=== PATIENT | male | born 1975 | race Caucasian/White ===

== ENCOUNTER 2016-09-10 15:27 | Emergency (ER) | payer MEDICAID ==
[~2016-09-10] VITALS: Ht 172.7 cm; Wt 63.1 kg
[~2016-09-10 15:27] MED LIST: INSU100C SQ-INSULIN; INSU100V8 SQ
[2016-09-10 15:43] VITALS: BP 97/61
[2016-09-10] MEDS ORDERED: KETOROLAC 30 MG/1 ML ONE (16:20)
[2016-09-10] MEDS ORDERED: KETOROLAC 30 MG/1 ML IM ONE (16:30)
== END 2016-09-10 16:46 | disposition home or self-care (01) ==
LOC: ED 16:27
DX: K02.9 Dental caries, unspecified (principal); F17.200 Nicotine dependence, unspecified, uncomplicated; E11.9 Type 2 diabetes mellitus without complications; F19.10 Other psychoactive substance abuse, uncomplicated
CPT/HCPCS: 96372; 99283; J1885

== ENCOUNTER 2016-10-25 08:30 | Emergency (ER) | payer MEDICAID ==
[~2016-10-25] VITALS: Ht 170.2 cm; Wt 62.4 kg
[2016-10-25] MEDS ORDERED: METF500T4 PO (08:58)
[2016-10-25] MEDS ORDERED: FOLI-17 PO (08:59)
[2016-10-25] MEDS ORDERED: MULT1TAB50 PO (08:59)
[2016-10-25] MEDS ORDERED: THIA50TA PO (09:00)
[2016-10-25] MEDS ORDERED: SODIUM CHLORIDE FLUSH 10ML SYR IVF ONE (09:30)
[2016-10-25] MEDS ORDERED: SODIUM CHLORIDE 0.9% 1,000ML IVBOLUS ONE (09:30)
[2016-10-25] MEDS ORDERED: ONDANSETRON 2MG/ML, 2ML IVPush ONE (09:30)
[2016-10-25] MEDS ORDERED: morphine SULFATE 10 MG/ML, 1ML IVPush ONE (09:30)
[2016-10-25] MEDS ORDERED: MORPHINE SULFATE 4 MG/ML, 1ML ONE (09:32)
[2016-10-25] MEDS ORDERED: ONDANSETRON 2MG/ML, 2ML ONE (09:32)
[2016-10-25] MEDS: SODIUM CHLORIDE 0.9% 1,000 ML IV ONE ×2 (09:37→10:28)
[2016-10-25 09:46] VITALS: BP 126/77
[2016-10-25 09:52] LABS: BLOOD UREA NITROGEN 14 mg/dL (7-18)
[2016-10-25] MEDS ORDERED: KETOROLAC 30 MG/1 ML ONE (10:18)
[2016-10-25] MEDS ORDERED: INSULIN REGULAR 100 UNITS/ML, 3ML VIAL ONE (10:19)
[2016-10-25] MEDS ORDERED: INSULIN REGULAR 100 UNITS/ML, 3ML VIAL IVPush ONE (10:30)
[2016-10-25] MEDS ORDERED: KETOROLAC 30 MG/1 ML IVPush ONE (10:30)
== END 2016-10-25 12:19 | disposition home or self-care (01) ==
LOC: ED 09:43
DX: L02.91 Cutaneous abscess, unspecified (principal); E11.65 Type 2 diabetes mellitus with hyperglycemia
CPT/HCPCS: 36415; 80048; 82010; 82040; 82962; 85025; 96361; 96374; 96375; 99285; J1885; J2270; J2405; J7030

== ENCOUNTER 2016-10-27 07:25 | Emergency (ER) | payer MEDICAID ==
[~2016-10-27] VITALS: Ht 172.7 cm; Wt 64.8 kg
[~2016-10-27 07:25] MED LIST changes: +FOLI-17 PO; +METF500T4 PO; +MULT1TAB50 PO; +THIA50TA PO
[2016-10-27 07:27] VITALS: BP 103/65
[2016-10-27] MEDS ORDERED: BENZOCAINE 20% SPRAY 0.5ML ONE (07:58)
[2016-10-27] MEDS ORDERED: LIDOCAINE 1%, 20ML ONE (07:59)
[2016-10-27] MEDS ORDERED: SODIUM CHLORIDE 0.9% 1,000ML IVBOLUS ONE (08:30)
[2016-10-27 09:34] LABS: BLOOD UREA NITROGEN 18 mg/dL (7-18)
[2016-10-27] MEDS ORDERED: ONDANSETRON 2MG/ML, 2ML IVPush ONE (10:00)
[2016-10-27] MEDS ORDERED: INSULIN REGULAR 100 UNITS/ML, 3ML VIAL IVPush ONE (10:00)
[2016-10-27] MEDS ORDERED: HYDROmorphone 1 MG/ML, 1ML IV ONE (10:00)
[2016-10-27] MEDS ORDERED: HYDROmorphone 1 MG/ML, 1ML ONE (10:09)
[2016-10-27] MEDS ORDERED: ONDANSETRON 2MG/ML, 2ML ONE (10:10)
[2016-10-27] MEDS ORDERED: INSULIN REGULAR 100 UNITS/ML, 3ML VIAL ONE (10:11)
== END 2016-10-27 11:19 | disposition home or self-care (01) ==
LOC: ED 08:11
DX: K02.9 Dental caries, unspecified (principal); E11.65 Type 2 diabetes mellitus with hyperglycemia; F17.210 Nicotine dependence, cigarettes, uncomplicated; F15.10 Other stimulant abuse, uncomplicated
CPT/HCPCS: 36415; 64400; 80048; 82040; 82962; 96361; 96374; 96375; 99284; J1170; J2405; J7030

== ENCOUNTER 2018-02-14 11:08 | Day surgery (SDC) | payer OTHER ==
[~2018-02-14] VITALS: Ht 170.2 cm; Wt 51.3 kg
[~2018-02-14 11:08] MED LIST changes: -METF500T4 PO; +METF500T5 PO
[2018-02-14] MEDS ORDERED: LACTATED RINGERS 1,000 ML IV SCH (11:35)
[2018-02-14] MEDS ORDERED: INSU100I15 SQ-INSULIN (11:40)
[2018-02-14 11:41] VITALS: BP 93/62
[2018-02-14 12:24] LABS: ALBUMIN 3.8 g/dL (3.4-5.0); ANION GAP 3 mmol/L (5-15); CALCIUM 8.9 mg/dL (8.5-10.1); CHLORIDE 107 mmol/L (98-107)
[2018-02-14 12:26] LABS: ALANINE AMINOTRANSFERASE 32 U/L (12-78); ALKALINE PHOSPHATASE 78 U/L (45-117); BILIRUBIN,TOTAL 0.4 mg/dL (0.2-1.0); CREATININE 0.67 mg/dL (0.7-1.3); TOTAL PROTEIN 7.6 g/dL (6.4-8.2)
[2018-02-14] MEDS ORDERED: PROPOFOL 10 MG/ML, 20ML ONE (13:04)
[2018-02-14] MEDS ORDERED: PROMETHAZINE 25 MG/ML, 1ML IV PRN (14:00)
[2018-02-14] MEDS ORDERED: ONDANSETRON ODT 8 MG PO PRN (14:00)
[2018-02-14] MEDS ORDERED: OXYcodone 5 MG/5 ML ORAL.SOL UDC PO PRN (14:00)
[2018-02-14] MEDS ORDERED: HYDROcodone/APAP 7.5-325MG/15ML UDC PO PRN (14:00)
[2018-02-14] MEDS ORDERED: ACETAMINOPHEN 325 MG TABLET PO PRN (14:00)
[2018-02-14] MEDS ORDERED: ONDANSETRON 2MG/ML, 2ML IV PRN (14:00)
== END 2018-02-14 14:45 | disposition home or self-care (01) ==
LOC: OUT 11:08
PROVIDERS: ATTEND Internal Medicine
DX: K22.2 Esophageal obstruction (principal); K21.9 Gastro-esophageal reflux disease without esophagitis; K44.9 Diaphragmatic hernia without obstruction or gangrene; F15.20 Other stimulant dependence, uncomplicated; F10.21 Alcohol dependence, in remission; F17.219 Nicotine dependence, cigarettes, with unspecified nicotine-induced disorders; Z87.898 Personal history of other specified conditions; E11.9 Type 2 diabetes mellitus without complications; Z79.899 Other long term (current) drug therapy; Z98.890 Other specified postprocedural states
CPT/HCPCS: 80053; 82962; 93005; J2704; C1725; J7120

== ENCOUNTER 2018-02-14 18:11 | Emergency (ER) | payer OTHER ==
[~2018-02-14] VITALS: Ht 170.2 cm; Wt 53.6 kg
[~2018-02-14 18:11] MED LIST changes: +INSU100I15 SQ-INSULIN
[2018-02-14 19:48] LABS: ALBUMIN 3.3 g/dL (3.4-5.0); ANION GAP 5 mmol/L (5-15); CALCIUM 8.7 mg/dL (8.5-10.1); CHLORIDE 102 mmol/L (98-107); CREATININE 0.67 mg/dL (0.7-1.3)
[2018-02-14 19:52] LABS: TROPONIN I < 0.015 ng/mL (0.000-0.045)
[2018-02-14 19:59] LABS: BASOPHILS # (AUTO) 0.05 x10^3/uL (0-0.1); BASOPHILS % (AUTO) 1 % (0-1); EOSINOPHILS # (AUTO) 0.02 x10^3/uL (0-0.4); EOSINOPHILS % (AUTO) 0 % (1-7); LYMPHOCYTES # (AUTO) 3.22 x10^3/uL (1-3.4); LYMPHOCYTES % (AUTO) 30 % (22-44); MD NO; MEAN CORPUSCULAR HEMOGLOBIN 31.5 pg (27.5-34.5); MEAN CORPUSCULAR HGB CONC 33.8 g/dL (33.2-36.2); MEAN CORPUSCULAR VOLUME 92.9 fL (81-97); MONOCYTES # (AUTO) 0.66 x10^3/uL (0.2-0.8); MONOCYTES % (AUTO) 6 % (2-9); NEUTROPHILS # (AUTO) 6.65 x10^3/uL (1.8-6.8); NEUTROPHILS % (AUTO) 63 % (42-75); PLATELET COUNT 167 x10^3/uL (130-400); RED BLOOD COUNT 4.38 x10^6/uL (4.38-5.82); RED CELL DISTRIBUTION WIDTH 12.7 % (9.4-14.8)
[2018-02-14 20:50] VITALS: BP 124/61
== END 2018-02-14 21:04 | disposition home or self-care (01) ==
LOC: ED 20:58
DX: R06.00 Dyspnea, unspecified (principal); E11.65 Type 2 diabetes mellitus with hyperglycemia; F17.200 Nicotine dependence, unspecified, uncomplicated
CPT/HCPCS: 36415; 71046; 80048; 82040; 83880; 84484; 85025; 85379; 93005; 99285

== ENCOUNTER 2018-07-02 16:46 | Inpatient (IN) | payer OTHER ==
[~2018-07-02] VITALS: Ht 170.2 cm; Wt 56.8 kg
[~2018-07-02 16:46] MED LIST changes: +METF500T17 PO; -METF500T5 PO
[2018-07-02] MEDS ORDERED: SODIUM CHLORIDE FLUSH 10ML SYR IVF ONE (17:00)
[2018-07-02] MEDS ORDERED: ONDANSETRON 2MG/ML, 2ML IVPush ONE (17:00)
--- NOTE | 2018-07-02 17:05 | NUR ---
KG=[id number] IN TRIAGE.
[2018-07-02] MEDS ORDERED: ONDANSETRON 2MG/ML, 2ML ONE (17:10)
[2018-07-02 17:31] LABS: BASOPHILS # (AUTO) 0.05 x10^3/uL (0-0.1); BASOPHILS % (AUTO) 0 % (0-1); EOSINOPHILS % (AUTO) 1 % (1-7); LYMPHOCYTES # (AUTO) 2.02 x10^3/uL (1-3.4); LYMPHOCYTES % (AUTO) 15 % (22-44); MD NO; MEAN CORPUSCULAR HGB CONC 33.8 g/dL (33.2-36.2); MEAN CORPUSCULAR VOLUME 91.8 fL (81-97); MEAN PLATELET VOLUME 10.8 fL (7.4-10.4); MONOCYTES # (AUTO) 0.66 x10^3/uL (0.2-0.8); MONOCYTES % (AUTO) 5 % (2-9); NEUTROPHILS # (AUTO) 11.09 x10^3/uL (1.8-6.8); NEUTROPHILS % (AUTO) 80 % (42-75); PLATELET COUNT 218 x10^3/uL (130-400); RED BLOOD COUNT 5.03 x10^6/uL (4.38-5.82)
[2018-07-02] MEDS ORDERED: MORPHINE SULFATE 4 MG/ML, 1ML ONE ×2 (17:33→19:28)
[2018-07-02 17:40] LABS: ALANINE AMINOTRANSFERASE 16 U/L (12-78); ALBUMIN 4.6 g/dL (3.4-5.0); ANION GAP 17 mmol/L (5-15); CALCIUM 9.9 mg/dL (8.5-10.1); CHLORIDE 96 mmol/L (98-107); CREATININE 1.22 mg/dL (0.7-1.3)
[2018-07-02] MEDS: MORPHINE SULFATE 4 MG/ML, 1ML IVPush PRN ×2 (17:40→19:43)
[2018-07-02 17:43] LABS: ALKALINE PHOSPHATASE 117 U/L (45-117); BILIRUBIN,TOTAL 0.8 mg/dL (0.2-1.0); TOTAL PROTEIN 8.7 g/dL (6.4-8.2)
--- NOTE | 2018-07-02 17:43 | NUR ---
PT REPORTS NAUSEA, VOMITING SINCE YESTERDAY, HX DIABETES, HYPERGLYCEMIC IN TRIAGE. PT ANXIOUS, CONTINOUSLY ASKING FOR PAIN MEDICATION FROM RN. PT EDUCATED MANY TIMES OF PROCESS, MD IN TO SEE PT, PT MEDICATED FOR NAUSEA AND PAIN PER EMAR. PT REMAINS ANXIOUS. US AT BEDSIDE.
[2018-07-02 17:50] LABS: ACETONE, SERUM Large (80mg/dL) mg/dL (Negative)
[2018-07-02 17:58] LABS: CULTURE INDICATED? NO; MICROSCOPIC NOT IND
[2018-07-02] MEDS ORDERED: INSULIN REGULAR 100 UNITS/ML, 3ML VIAL IVPush ONE (19:00)
[2018-07-02] MEDS ORDERED: SODIUM CHLORIDE 0.9% 1,000ML IVBOLUS ONE (19:00)
[2018-07-02] MEDS ORDERED: INSULIN REGULAR 100 UNITS/ML, 3ML VIAL ONE (19:29)
[2018-07-02] MEDS ORDERED: SODIUM CHLORIDE FLUSH 10ML SYR IVF PRN (19:30)
--- NOTE | 2018-07-02 19:37 | NUR ---
PT AMBULATORY TO RESTROOM, STEADY GAIT NOTED
--- NOTE | 2018-07-02 19:41 | NUR ---
PT AGITATED. CONSTANTLY REQUESTING PAIN MEDS AFTER THIS RN TOLD HIM I HAVE THEM TO GIVE HIM. PT ANXIOUS, FIGETING. FSBS REASSED, 467. PT ANGRY STATING "WHY WON'T Y'ALL GET MY BLOOD SUGAR DOWN". PT WAS ASKED TO NOT RAISE HIS VOICE, AND THIS RN WAS ABOUT TO GIVE HIM INSULIN TO GET HIS BLOOD SUGAR DOWN. THE PT ALSO EXPRESSES FRUSTRATION THAT HE NEEDS TO GO HOME BECAUSE HE HAS AN ENDOSCOPY IN THE MORNING AND HE HAS WAITED 2 MONTHS FOR THIS APPT. THE PT WAS EDUCATED ON HOW SERIOUS DKA IS AND THAT HE IS GOING TO BE ADMITTED TO THE ICU FOR MANAGMENT OF HIS BLOOD SUGAR. THE PT SEEMED TO CALM DOWN FOR A FEW MINUTES BUT THEN AGAIN BEGAN ASKING FOR PAIN MEDS AND "FOR YALL TO GET MY BLOOD SUGAR DOWN"
--- NOTE | 2018-07-02 19:43 | NUR ---
PT MEDICATED PER EMAR. 5 RIGHTS ADDRESSED. 2ND IV ESTABLISHED IN LEFT HAND. PT REQUESTED 2ND IV TO BE PLACED IN HAND
--- NOTE | 2018-07-02 19:54 | NUR ---
REPORT TO PARAM AMBROSE
--- NOTE | 2018-07-02 20:22 | NUR ---
PT PROVIDED WITH PILLOW. RESTING ON GURNEY, PLAYING ON PHONE. DENIES ANY OTHER NEEDS AT THIS TIME. VITALS STABLE.
[2018-07-02] MEDS ORDERED: REGULAR INSULIN 62.5 UNITS in SODIUM CHLORIDE 0.9% 249.375 ML IV PRN (21:03)
[2018-07-02] MEDS: SODIUM CHLORIDE 0.9% 1,000 ML IV SCH (21:29)
[2018-07-02] MEDS: HEPARIN 5,000 UNITS/ML, 1ML SQ SCH (21:30)
[2018-07-02] MEDS ORDERED: ACETAMINOPHEN 325 MG TABLET PO PRN (21:30)
[2018-07-02] MEDS ORDERED: BISACODYL 10 MG SUPP PR PRN (21:30)
[2018-07-02] MEDS ORDERED: ONDANSETRON ODT 4 MG PO PRN (21:30)
[2018-07-02] MEDS ORDERED: LABETALOL 5MG/ML, 20ML IVPush PRN (21:30)
[2018-07-02] MEDS ORDERED: DOCUSATE 100 MG CAPSULE PO PRN (21:30)
[2018-07-02] MEDS ORDERED: ONDANSETRON 2MG/ML, 2ML IVPush PRN (21:30)
[2018-07-02] MEDS ORDERED: PROMETHAZINE 25 MG/ML, 1ML IM PRN (21:30)
[2018-07-02] MEDS ORDERED: hydrALAzine 20 MG/ML, 1ML IVPush PRN (21:30)
[2018-07-02] MEDS ORDERED: POLYETHYLENE GLYCOL 17 GM PACKET PO PRN (21:30)
[2018-07-02 21:56] LABS: FREE T4 (FREE THYROXINE) 1.32 ng/dL (0.76-1.46); THYROID STIMULATING HORMONE 1.08 mIU/L (0.358-3.740)
[2018-07-02] MEDS ORDERED: DIPHENHYDRAMINE 25 MG CAPSULE PO PRN (22:00)
[2018-07-02 22:26] VITALS: BP 115/61
[2018-07-02] MEDS: D5%-0.45% NACL 1,000 ML IV SCH (23:20)
[2018-07-03 03:15] LABS: ANION GAP 5 mmol/L (5-15); CALCIUM 8.9 mg/dL (8.5-10.1); CHLORIDE 106 mmol/L (98-107)
[2018-07-03] MEDS: SODIUM CHLORIDE 0.9% 1,000 ML IV SCH (03:45)
[2018-07-03 04:00] VITALS: BP 109/64
[2018-07-03 04:31] LABS: BASOPHILS # (AUTO) 0.05 x10^3/uL (0-0.1); BASOPHILS % (AUTO) 1 % (0-1); EOSINOPHILS # (AUTO) 0.12 x10^3/uL (0-0.4); EOSINOPHILS % (AUTO) 1 % (1-7); LYMPHOCYTES # (AUTO) 3.27 x10^3/uL (1-3.4); LYMPHOCYTES % (AUTO) 32 % (22-44); MD NO; MEAN CORPUSCULAR HEMOGLOBIN 31.3 pg (27.5-34.5); MEAN CORPUSCULAR HGB CONC 34.1 g/dL (33.2-36.2); MEAN CORPUSCULAR VOLUME 91.7 fL (81-97); MEAN PLATELET VOLUME 10.2 fL (7.4-10.4); MONOCYTES % (AUTO) 10 % (2-9); NEUTROPHILS # (AUTO) 5.94 x10^3/uL (1.8-6.8); NEUTROPHILS % (AUTO) 57 % (42-75); PLATELET COUNT 178 x10^3/uL (130-400); RED BLOOD COUNT 4.43 x10^6/uL (4.38-5.82); RED CELL DISTRIBUTION WIDTH 12.8 % (9.4-14.8)
[2018-07-03 04:35] LABS: ANION GAP 3 mmol/L (5-15); CALCIUM 8.9 mg/dL (8.5-10.1); CHLORIDE 105 mmol/L (98-107); CHOLESTEROL, TOTAL 209 mg/dL (140-239); CREATININE 0.71 mg/dL (0.7-1.3)
[2018-07-03 04:38] LABS: CHOL/HDL RATIO 5.1; HDL CHOL % 20 % (26-37); HDL CHOLESTEROL (DIRECT) 41 mg/dL (40-60); LDL CHOLESTEROL,CALCULATED 130 mg/dL (54-169); LDL/HDL RATIO 3.2 (0.5-3.0); TRIGLYCERIDES 190 mg/dL (50-200); VLDL CHOLESTEROL 38 mg/dL (0-25)
[2018-07-03] MEDS: HEPARIN 5,000 UNITS/ML, 1ML SQ SCH (05:30)
[2018-07-03] MEDS: D5%-0.45% NACL 1,000 ML IV SCH (05:43)
[2018-07-03] MEDS ORDERED: PANTOPRAZOLE 40 MG IV IVPush SCH (07:30)
[2018-07-03 08:21] LABS: CULTURE INDICATED? NO; MICROSCOPIC NOT IND
[2018-07-03] MEDS ORDERED: DIPHENHYDRAMINE 25 MG CAPSULE PO PRN (09:30)
[2018-07-03] MEDS ORDERED: KETOROLAC 30 MG/1 ML IVPush PRN (09:30)
[2018-07-03] MEDS ORDERED: INSULIN GLARGINE 100 UNITS/ML, PEN SQ-INSULIN SCH (09:30)
[2018-07-03] MEDS ORDERED: SODIUM CHLORIDE 0.9% 1,000 ML IV SCH (09:30)
[2018-07-03 09:33] LABS: ANION GAP 6 mmol/L (5-15); CALCIUM 9.2 mg/dL (8.5-10.1); CHLORIDE 103 mmol/L (98-107)
[2018-07-03 09:34] LABS: CREATININE 0.85 mg/dL (0.7-1.3)
[2018-07-03] MEDS ORDERED: INSU100V8 SQ (10:52)
== END 2018-07-03 14:11 | disposition home or self-care (01) | DRG 639 ==
LOC: ED 18:27 → ICU 19:19
PROVIDERS: ADMIT Internal Medicine; ATTEND Internal Medicine
DX: E10.10 Type 1 diabetes mellitus with ketoacidosis without coma (principal); F17.210 Nicotine dependence, cigarettes, uncomplicated; E11.65 Type 2 diabetes mellitus with hyperglycemia; K21.9 Gastro-esophageal reflux disease without esophagitis; Z79.4 Long term (current) use of insulin; Z86.72 Personal history of thrombophlebitis
CPT/HCPCS: 36415; 76700; 80048; 80053; 80061; 81003; 82010; 82800; 82962; 83036; 83690; 83735; 84439; 84443; 85025; 87081; 93005; 96361; 96374; 96375; G0378; J1815; J1885; J2405; J2550; C9113; J7030; J7050; Q0163

== ENCOUNTER 2019-05-11 18:02 | Emergency (ER) | payer SELFPAY ==
[~2019-05-11] VITALS: Ht 170.2 cm; Wt 64.0 kg
[~2019-05-11 18:02] MED LIST changes: -THIA50TA PO; +THIA50TA4 PO
[2019-05-11] MEDS ORDERED: SODIUM CHLORIDE FLUSH 10ML SYR IVF ONE (19:00)
[2019-05-11] MEDS ORDERED: HYDROmorphone 2 MG/ML, 1ML IVPush PRN (19:00)
[2019-05-11] MEDS ORDERED: SODIUM CHLORIDE 0.9% 1,000ML IVBOLUS ONE (19:00)
[2019-05-11] MEDS ORDERED: FAMOTIDINE 20 MG/2 ML IVPush ONE (19:00)
[2019-05-11] MEDS ORDERED: PROMETHAZINE 25 MG/ML, 1ML IM ONE (19:00)
--- NOTE | 2019-05-11 19:04 | NUR ---
PT BIB SPOUSE FOR N/V FOR 2 DAYS WITH "STREAKED BLOOD" IN EMESIS. PT HAS HX OF DIABETES AND THINKS HE IS IN DKA. BEDSIDE GLUCOMETER REVEALED GLUCOSE OF 125. REPORT TO DAMIEN VIRGEN.
[2019-05-11] MEDS ORDERED: PROMETHAZINE 25 MG/ML, 1ML ONE (19:15)
[2019-05-11] MEDS ORDERED: HYDROmorphone 1 MG/ML, 1ML VIAL ONE (19:16)
[2019-05-11] MEDS ORDERED: FAMOTIDINE 20 MG/2 ML ONE (19:16)
[2019-05-11 19:18] LABS: BASOPHILS # (AUTO) 0.19 x10^3/uL (0-0.1); BASOPHILS % (AUTO) 2 % (0-1); EOSINOPHILS # (AUTO) 0.04 x10^3/uL (0-0.4); EOSINOPHILS % (AUTO) 0 % (1-7); LYMPHOCYTES % (AUTO) 14 % (22-44); MD NO; MEAN CORPUSCULAR HEMOGLOBIN 31.3 pg (27.5-34.5); MEAN CORPUSCULAR HGB CONC 33.4 g/dL (33.2-36.2); MEAN CORPUSCULAR VOLUME 93.5 fL (81-97); MEAN PLATELET VOLUME 10.6 fL (7.4-10.4); MONOCYTES # (AUTO) 0.62 x10^3/uL (0.2-0.8); MONOCYTES % (AUTO) 5 % (2-9); NEUTROPHILS # (AUTO) 9.92 x10^3/uL (1.8-6.8); NEUTROPHILS % (AUTO) 79 % (42-75); PLATELET COUNT 161 x10^3/uL (130-400); RED BLOOD COUNT 5.05 x10^6/uL (4.38-5.82); RED CELL DISTRIBUTION WIDTH 13.6 % (9.4-14.8)
[2019-05-11 19:28] LABS: ALANINE AMINOTRANSFERASE 28 U/L (12-78); ALBUMIN 4.8 g/dL (3.4-5.0); ANION GAP 11 mmol/L (5-15); CALCIUM 9.8 mg/dL (8.5-10.1); CHLORIDE 100 mmol/L (98-107); CREATININE 0.82 mg/dL (0.7-1.3)
[2019-05-11 19:30] LABS: ALKALINE PHOSPHATASE 78 U/L (45-117); BILIRUBIN,TOTAL 0.7 mg/dL (0.2-1.0); TOTAL PROTEIN 8.3 g/dL (6.4-8.2)
[2019-05-11] MEDS ORDERED: MAALOX/HYOSCYAMINE/LIDOCAINE 45 ML BTL PO ONE (19:30)
[2019-05-11] MEDS ORDERED: MAALOX/HYOSCYAMINE/LIDOCAINE 45 ML BTL ONE (20:06)
[2019-05-11 20:54] LABS: ACETONE, SERUM Small (20mg/dL) mg/dL (Negative)
--- NOTE | 2019-05-11 21:10 | NUR ---
PT BRANK 1 APPLE JUICE AND 1 CUP OF WATER WITH NO INCREASED PAIN OR NAUSEA. PT STATED" I FEEL BETTER AND AM READY TO GO HOME, THANK YOU"
[2019-05-11 21:11] VITALS: BP 103/65
== END 2019-05-11 21:14 | disposition home or self-care (01) ==
LOC: ED 21:08
DX: K52.9 Noninfective gastroenteritis and colitis, unspecified (principal); E11.10 Type 2 diabetes mellitus with ketoacidosis without coma; F17.200 Nicotine dependence, unspecified, uncomplicated
CPT/HCPCS: 36415; 74021; 80053; 82010; 82800; 82962; 83690; 83735; 84100; 85025; 93005; 96361; 96372; 96374; 96375; 99284; J1170; J2550; J3490; J7030

== ENCOUNTER 2019-08-21 14:24 | Emergency (ER) | payer OTHER ==
[~2019-08-21] VITALS: Ht 170.2 cm; Wt 65.6 kg
[2019-08-21] MEDS ORDERED: ONDANSETRON ODT 4 MG ONE (14:41)
--- NOTE | 2019-08-21 14:42 | NUR ---
SCISSORS SHARPENER: NOTIFIED OF PT'S VOMITTING IN TRIAGE ROOM, ORDER RECIEVED AND IMPLEMENTED.
[2019-08-21] MEDS ORDERED: ONDANSETRON ODT 4 MG PO ONE (15:00)
[2019-08-21 16:35] LABS: BASOPHILS # (AUTO) 0.07 x10^3/uL (0-0.1); BASOPHILS % (AUTO) 0 % (0-1); EOSINOPHILS % (AUTO) 0 % (1-7); LYMPHOCYTES # (AUTO) 2.13 x10^3/uL (1-3.4); LYMPHOCYTES % (AUTO) 14 % (22-44); MD NO; MEAN CORPUSCULAR HEMOGLOBIN 29.7 pg (27.5-34.5); MEAN CORPUSCULAR HGB CONC 32.8 g/dL (33.2-36.2); MEAN CORPUSCULAR VOLUME 90.6 fL (81-97); MEAN PLATELET VOLUME 10.7 fL (7.4-10.4); MONOCYTES # (AUTO) 0.84 x10^3/uL (0.2-0.8); MONOCYTES % (AUTO) 6 % (2-9); NEUTROPHILS # (AUTO) 12.09 x10^3/uL (1.8-6.8); NEUTROPHILS % (AUTO) 80 % (42-75); PLATELET COUNT 167 x10^3/uL (130-400); RED BLOOD COUNT 5.19 x10^6/uL (4.38-5.82); RED CELL DISTRIBUTION WIDTH 14.3 % (9.4-14.8)
[2019-08-21 16:36] LABS: PH, VENOUS 7.473 pH (7.320-7.420)
[2019-08-21 16:40] LABS: ALANINE AMINOTRANSFERASE 44 U/L (12-78); ALBUMIN 4.7 g/dL (3.4-5.0); ANION GAP 15 mmol/L (5-15); CALCIUM 9.6 mg/dL (8.5-10.1); CHLORIDE 92 mmol/L (98-107); CREATININE 1.08 mg/dL (0.7-1.3)
[2019-08-21 16:42] LABS: ALKALINE PHOSPHATASE 96 U/L (45-117); BILIRUBIN,TOTAL 0.9 mg/dL (0.2-1.0); TOTAL PROTEIN 8.4 g/dL (6.4-8.2)
--- NOTE | 2019-08-21 16:50 | NUR ---
PT CAME IN CO OF ABD PAIN. HX OF PANCREATITIS. DRANK LAST NIGHT. DOESNT REMEMBER HOW MUCH. PT VOMITTED IN TRIAGE. PT WAS DRINKING FROM THE SINK IN THE ROOM. BLANKET PROVIDED
[2019-08-21 16:58] LABS: MICROSCOPIC NOT IND
[2019-08-21 17:03] LABS: ACETONE, SERUM Moderate(40mg/dL) (Negative)
[2019-08-21] MEDS ORDERED: HALOPERIDOL 5 MG/ML ONE (17:08)
[2019-08-21] MEDS ORDERED: DIPHENHYDRAMINE 50 MG/ML, 1ML ONE (17:09)
[2019-08-21 17:10] LABS: CULTURE INDICATED? NO
[2019-08-21] MEDS ORDERED: HALOPERIDOL 5 MG/ML IM ONE (17:30)
[2019-08-21] MEDS ORDERED: DIPHENHYDRAMINE 50 MG/ML, 1ML IM ONE (17:30)
--- NOTE | 2019-08-21 17:43 | NUR ---
Alfreda RN: Pt resting in bed, NAD, even & unablored respirations, awaiting recheck & MD dispo.
[2019-08-21] MEDS ORDERED: MORPHINE SULFATE 4 MG/ML, 1ML IVPush ONE (18:30)
[2019-08-21 18:36] VITALS: BP 103/58
--- NOTE | 2019-08-21 18:37 | NUR ---
PT RESTING IN [facility]. IV FLUIDS INFUSING. NO NEEDS AT THIS TIME
[2019-08-21] MEDS ORDERED: METOCLOPRAMIDE 5 MG/ML, 2ML ONE (18:41)
[2019-08-21] MEDS ORDERED: MORPHINE SULFATE 4 MG/ML, 1ML ONE (18:41)
[2019-08-21] MEDS ORDERED: METOCLOPRAMIDE 5 MG/ML, 2ML IVPush ONE (19:00)
== END 2019-08-21 20:11 | disposition home or self-care (01) ==
LOC: ED 17:20
DX: R11.10 Vomiting, unspecified (principal); E11.9 Type 2 diabetes mellitus without complications; R10.9 Unspecified abdominal pain
CPT/HCPCS: 36415; 80053; 81003; 82010; 82803; 83690; 85025; 96372; 96374; 96375; 99284; J1200; J1630; J2270; J2765; Q0162

== ENCOUNTER 2020-02-18 20:01 | Emergency (ER) | payer MEDICAID, OTHER ==
[~2020-02-18] VITALS: Ht 170.2 cm; Wt 66.9 kg
[2020-02-18] MEDS ORDERED: SODIUM CHLORIDE 0.9% 1,000ML IVBOLUS ONE (21:30)
[2020-02-18] MEDS ORDERED: ONDANSETRON 2MG/ML, 2ML IVPush ONE (21:30)
[2020-02-18 22:07] LABS: BASOPHILS # (AUTO) 0.06 x10^3/uL (0-0.1); BASOPHILS % (AUTO) 0 % (0-1); EOSINOPHILS % (AUTO) 0 % (1-7); LYMPHOCYTES # (AUTO) 1.29 x10^3/uL (1-3.4); LYMPHOCYTES % (AUTO) 9 % (22-44); MD NO; MEAN CORPUSCULAR HEMOGLOBIN 30.5 pg (27.5-34.5); MEAN CORPUSCULAR HGB CONC 33.4 g/dL (33.2-36.2); MEAN CORPUSCULAR VOLUME 91.3 fL (81-97); MEAN PLATELET VOLUME 10.9 fL (7.4-10.4); MONOCYTES # (AUTO) 0.43 x10^3/uL (0.2-0.8); MONOCYTES % (AUTO) 3 % (2-9); NEUTROPHILS # (AUTO) 13.01 x10^3/uL (1.8-6.8); NEUTROPHILS % (AUTO) 88 % (42-75); PLATELET COUNT 158 x10^3/uL (130-400); RED BLOOD COUNT 5.37 x10^6/uL (4.38-5.82)
--- NOTE | 2020-02-18 22:18 | NUR ---
pt to room from lobby
[2020-02-18 22:20] LABS: ANION GAP 18 mmol/L (5-15); CALCIUM 9.8 mg/dL (8.5-10.1); CHLORIDE 96 mmol/L (98-107)
[2020-02-18] MEDS ORDERED: ONDANSETRON 2MG/ML, 2ML ONE (22:21)
[2020-02-18 22:24] LABS: ALANINE AMINOTRANSFERASE 25 U/L (12-78); ALKALINE PHOSPHATASE 100 U/L (45-117); BILIRUBIN,TOTAL 0.9 mg/dL (0.2-1.0); CREATININE 1.06 mg/dL (0.7-1.3); TOTAL PROTEIN 9.1 g/dL (6.4-8.2)
[2020-02-18] MEDS ORDERED: MORPHINE SULFATE 4 MG/ML, 1ML ONE (22:28)
--- NOTE | 2020-02-18 22:38 | NUR ---
PT CAME IN CO OF ABD PAIN. VOMITTING. MEDICATED PER AUG.
[2020-02-18] MEDS ORDERED: MORPHINE SULFATE 4 MG/ML, 1ML IVPush ONE (23:00)
[2020-02-18 23:01] VITALS: BP 115/70
--- NOTE | 2020-02-18 23:02 | NUR ---
MD IS BEDSIDE
== END 2020-02-18 23:21 | disposition home or self-care (01) ==
LOC: ED 23:00
DX: R10.84 Generalized abdominal pain (principal); R11.2 Nausea with vomiting, unspecified; E86.0 Dehydration; E11.9 Type 2 diabetes mellitus without complications
CPT/HCPCS: 36415; 80053; 82962; 85025; 96361; 96374; 96375; 99284; J2270; J2405; J7030

== ENCOUNTER 2020-10-14 17:50 | Emergency (ER) | payer MEDICAID ==
[~2020-10-14] VITALS: Ht 170.2 cm; Wt 67.2 kg
[~2020-10-14 17:50] MED LIST changes: -FOLI-17 PO; +FOLI1TAB32 PO
--- NOTE | 2020-10-14 18:18 | NUR ---
PT C/O N/V. PT UNABLE TO ANSWERS QUESTIONS ABOUT OTHER PHYSICAL COMPLAINTS DUE TO VOMITING.
[2020-10-14] MEDS ORDERED: PROCHLORPERAZINE 5 MG/ML, 2ML ONE (18:30)
[2020-10-14] MEDS ORDERED: DIPHENHYDRAMINE 50 MG/ML, 1ML IVPush ONE (18:30)
[2020-10-14] MEDS ORDERED: PROCHLORPERAZINE 5 MG/ML, 2ML IVPush ONE (18:30)
[2020-10-14] MEDS ORDERED: SODIUM CHLORIDE 0.9% 1,000ML IVBOLUS ONE (18:30)
[2020-10-14] MEDS ORDERED: DIPHENHYDRAMINE 50 MG/ML, 1ML ONE (18:30)
[2020-10-14] MEDS ORDERED: SODIUM CHLORIDE FLUSH 10ML SYR IVF ONE (18:30)
[2020-10-14 18:40] LABS: PH, VENOUS 7.552 pH (7.320-7.420)
[2020-10-14 18:46] LABS: BASOPHILS % (AUTO) 0 % (0-1); EOSINOPHILS % (AUTO) 0 % (1-7); LYMPHOCYTES % (AUTO) 10 % (22-44); MEAN CORPUSCULAR HEMOGLOBIN 30.5 pg (27.5-34.5); MEAN CORPUSCULAR HGB CONC 33.8 g/dL (33.2-36.2); MEAN PLATELET VOLUME 10.7 fL (7.4-10.4); MONOCYTES % (AUTO) 5 % (2-9); NEUTROPHILS % (AUTO) 85 % (42-75); PLATELET COUNT 177 x10^3/uL (130-400); RED CELL DISTRIBUTION WIDTH 13.9 % (9.4-14.8)
[2020-10-14 18:56] LABS: ACETONE, SERUM Moderate(40mg/dL) (Negative); ALANINE AMINOTRANSFERASE 24 U/L (12-78); ALBUMIN 4.9 g/dL (3.4-5.0); ANION GAP 11 mmol/L (5-15); CALCIUM 10.2 mg/dL (8.5-10.1); CHLORIDE 100 mmol/L (98-107); CREATININE 1.14 mg/dL (0.7-1.3)
[2020-10-14 18:58] LABS: ALKALINE PHOSPHATASE 92 U/L (45-117); BILIRUBIN,TOTAL 0.9 mg/dL (0.2-1.0); TOTAL PROTEIN 8.9 g/dL (6.4-8.2)
[2020-10-14 19:04] VITALS: BP 131/87
--- NOTE | 2020-10-14 19:05 | NUR ---
bedside report from elissa neely. pt resting on rcarmi insisting lights be turned off so he can sleep. urine tubed to lab
[2020-10-14 19:06] LABS: MD SCAN
[2020-10-14 19:29] LABS: MICROSCOPIC NOT IND
== END 2020-10-14 19:59 | disposition home or self-care (01) ==
LOC: ED 19:45
DX: R11.2 Nausea with vomiting, unspecified (principal); R10.84 Generalized abdominal pain; F17.210 Nicotine dependence, cigarettes, uncomplicated; E11.65 Type 2 diabetes mellitus with hyperglycemia
CPT/HCPCS: 36415; 80053; 81003; 82010; 82803; 82962; 83690; 85025; 96361; 96374; 96375; 99284; 99406; J0780; J1200; J7030

== ENCOUNTER → 2021-02-03 | Outpatient (CLI) | payer MEDICAID | END | disposition home or self-care (01) | LOC: RAD 08:12 | PROVIDERS: ATTEND Internal Medicine Gastroenterology | DX: R13.19 Other dysphagia (principal); K21.00 Gastro-esophageal reflux disease with esophagitis, without bleeding; K31.89 Other diseases of stomach and duodenum; K22.2 Esophageal obstruction; K44.9 Diaphragmatic hernia without obstruction or gangrene | CPT/HCPCS: 74220 ==